=== PATIENT | female | born 1980 | race African-American/Black ===

== ENCOUNTER 2021-03-29 05:50 | Day surgery (SDC) | payer BC ==
[2021-03-25 16:07] VITALS: BMI 27.4
--- NOTE | 2021-03-28 09:14 | P.HPOB ---
History of Present Illness H&P Date: 03/28/21 Chief Complaint: Menorrhagia This patient is a pleasant 41-year-old 3 para 1 female who presented to my office requesting NovaSure endometrial ablation secondary to persistent menorrhagia. Patient's bleeding has been going on for a couple of years and despite oral contraceptives consult continues to be heavy. 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 Ultrasound showed a normal endometrium 3 mm and only a small fibroid. Patient at this point is requesting endometrial ablation for treatment. Review of Systems Genitourinary: Reports as per HPI, Reports menorrhagia Past Medical History Additional Past Medical History / Comment(s): HEAVY MENSES History of Any Multi-Drug Resistant Organisms: None Reported Past Surgical History: Breast Surgery, Tonsillectomy Additional Past Surgical History / Comment(s): BREAST AUGMENTATION. LIPOSUCTION TO ABD AND BILAT THIGHS Past Anesthesia/Blood Transfusion Reactions: No Reported Reaction Past Psychological History: No Psychological Hx Reported Smoking Status: Former smoker Past Alcohol Use History: None Reported Past Drug Use History: None Reported - Past Family History Mother Family Medical History: No Reported History Medications and Allergies Home Medications Medication Instructions Recorded Confirmed Type Control 1 tab PO HS 03/25/21 History Allergies Allergy/AdvReac Type Severity Reaction Status Date / Time No Known Allergies Allergy Verified 03/25/21 16:02 Exam - OBG Physical Exam Abdomen: bowel sounds normal, no diffuse tenderness, no bruit present, no guarding noted, no hepatomegaly, no splenomegaly, no mass Vulva: both: normal Vagina: normal moisture, no discharge Cervix: no lesion, no discharge Uterus: normal size, normal contour Results Transvaginal ultrasound shows normal endometrium and a small uterine fibroid. Assessment and Plan Assessment: This is a pleasant 41-year-old 3 para 1 female long-standing menorrhagia refractory to oral contraceptives with a normal evaluation. Patient is requesting endometrial ablation for treatment. Plan is hysteroscopy, D&C, NovaSure endometrial ablation. I have discussed the surgery with the patient and risks and risks of infection, bleeding, possible uterine perforation, and/or thermal injury. All the patient's questions were answered and a written consent obtained. (1) Menorrhagia Status: Chronic Code(s): N92.0 - EXCESSIVE AND FREQUENT MENSTRUATION WITH REGULAR CYCLE SNOMED Code(s): 874347415
[~2021-03-29 05:50] MED LIST: DEXAMETHASONE SOD PHOSPHATE 4 MG/ML 1 ML VIAL IV ONE; HYDROmorphone 0.5 MG/0.5 ML SYRINGE IVP PRN; LACTATED RINGERS 1,000 ML IV SCH; ONDANSETRON 4 MG/2 ML VIAL IVP ONE; Pre Op ABX Message 1 EACH MISC MISCELLANE ONE
[2021-03-29] MEDS ORDERED: MIDAZOLAM 2 MG/2 ML VIAL ONE (06:55)
[2021-03-29] MEDS ORDERED: LIDOCAINE 1% INJ 10MG/ML (20 ML MDV) ONE (06:55)
[2021-03-29] MEDS ORDERED: fentaNYL (PF) 50 MCG/ML 2 ML AMP ONE (06:55)
[2021-03-29] MEDS ORDERED: PROPOFOL 10 MG/ML 20 ML VIAL IV ONE (06:55)
[2021-03-29] MEDS ORDERED: KETOROLAC 15 MG/ML 1 ML VIAL ONE (06:55)
--- NOTE | 2021-03-29 07:39 | P.OP ---
Date of Procedure: 03/29/21 Preoperative Diagnosis: Menorrhagia Postoperative Diagnosis: Same Procedure(s) Performed: #1: Hysteroscopy. #2: Dilation and curettage. #3: NovaSure endometrial ablation. Anesthesia: other (LMA) Surgeon: Santiago Greer Estimated Blood Loss (ml): 10 Urine output (ml): 20 Pathology: other (Uterine curettings) Condition: stable Disposition: PACU Indications for Procedure: Please see dictated H&P for intimate details of this patient's admission. Brief summary this is a pleasant 41-year-old 1 para 1 female with long- standing menorrhagia refractory to oral contraceptives and a negative evaluation. Patient presents for hysteroscopy D&C and NovaSure endometrial ablation. Patient understands this procedure and risks and risks of infection, bleeding, possible uterine perforation, and/or thermal injury. All the patient's questions are answered and a written consent obtained. Operative Findings: This patient had a normal-appearing endometrial cavity. Description of Procedure: This patient is taken to the operating room where she is laid in the supine position. She subsequent undergoes general anesthesia without incident. With an adequate level of anesthesia she's placed in dorsal lithotomy position. She has a vaginal perineal prep and drape. Examination under anesthesia shows a mid position uterus of normal size. Weighted speculum was placed in the posterior vagina. The bladder is then drained for 20 mL of clear urine. I placed an Allis clamp and the anterior lip of the cervix. Uterus is then sounded gently to 8.5 cm. Gentle dilation is then done to allow the hysteroscope easily uterine cavity. Using saline solution, hysteroscopy is performed uterine cavity appears normal as measured a length of 6.0 cm. With this done the hysteroscope was then removed. Cervix is dilated more to allow a small curette easily uterine cavity. A gentle but thorough 4 quadrant curettage is then done. This completed the NovaSure device is then opened and placed at a length of 6.0 cm. It is seated in place and opens up to a width of 3.5 cm. After passing the cavity integrity test, it is enabled at 116 W setting for 70 seconds. NovaSure device is then removed. Hysteroscopy is performed in the uterine cavity appears to be completely ablated up until the endocervix. This point the procedure is ended. The Allis clamp and weighted speculum removed. All counts are correct 3. There are no complications. Patient is awakened from anesthesia and taken to the recovery room in satisfactory condition.
[2021-03-29 07:48] VITALS: RESP 16; TEMP 97
[2021-03-29 08:45] VITALS: BP 132/79; PULSE 58
== END 2021-03-29 08:54 | disposition home or self-care (01) ==
LOC: OR 05:50
PROVIDERS: ATTEND Obstetrics & Gynecology
DX: N92.0 Excessive and frequent menstruation with regular cycle (principal); Z98.890 Other specified postprocedural states; Z87.891 Personal history of nicotine dependence; Z79.3 Long term (current) use of hormonal contraceptives; J30.2 Other seasonal allergic rhinitis; K21.9 Gastro-esophageal reflux disease without esophagitis; Z79.899 Other long term (current) drug therapy
CPT/HCPCS: 81025; 58563; J2250; J1100; J2405; J2001; J3010; J1885; J2704; 88305